=== PATIENT | male | born 1950 | race Caucasian/White ===

== ENCOUNTER 2024-07-31 19:43 | Emergency (ER) | payer MEDICARE | END 2024-07-31 21:32 | disposition home or self-care (01) | LOC: MADERS 19:43 | DX: D68.32 Hemorrhagic disorder due to extrinsic circulating anticoagulants (principal); I10 Essential (primary) hypertension; E78.5 Hyperlipidemia, unspecified; K21.9 Gastro-esophageal reflux disease without esophagitis; Z79.01 Long term (current) use of anticoagulants; Z79.02 Long term (current) use of antithrombotics/antiplatelets; Z79.899 Other long term (current) drug therapy | CPT/HCPCS: 99283 ==